=== PATIENT | female | born 1975 | race Caucasian/White ===

== ENCOUNTER 2017-09-16 11:17 | Emergency (ER) | payer OTHER ==
[~2017-09-16] VITALS: Ht 165.1 cm; Wt 56.7 kg
== END 2017-09-16 14:37 | disposition home or self-care (01) ==
LOC: ER 11:17
DX: L03.114 Cellulitis of left upper limb (principal)

== ENCOUNTER 2017-10-03 14:17 | Emergency (ER) | payer OTHER ==
[~2017-10-03] VITALS: Ht 162.6 cm; Wt 53.5 kg
== END 2017-10-03 15:29 | disposition home or self-care (01) ==
LOC: ER 14:17
DX: L03.114 Cellulitis of left upper limb (principal)